=== PATIENT | female | born 1995 | race American Indian/Alaskan Native ===

== ENCOUNTER 2018-01-24 12:51 | Emergency (ER) | payer MEDICAID ==
[2018-01-24 13:05] VITALS: BP 108/69; PULSE 103; RESP 16; TEMP 98; O2SAT 100
--- NOTE | 2018-01-24 13:26 | ED PDOC ---
HPI: CCC, URI, Sore Throat Time Seen by Provider: 01/24/18 13:15 Chief Complaint (Nursing): ENT Problem Chief Complaint (Provider): ENT Problem History Per: Patient History/Exam Limitations: no limitations Onset/Duration Of Symptoms: Days (x2) Current Symptoms Are (Timing): Still Present Additional Complaint(s): 22 year old female presents to the emergency department complaining of a sore throat, onset two days. 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 Denies fever, chills, and cough. PMD: none provided Past Medical History Reviewed: Historical Data, Nursing Documentation, Vital Signs Vital Signs: Last Vital Signs Temp 98 F 01/24/18 13:05 Pulse 103 H 01/24/18 13:05 Resp 16 01/24/18 13:05 BP 108/69 01/24/18 13:05 Pulse Ox 100 01/24/18 13:28 - Medical History PMH: No Chronic Diseases - Surgical History Surgical History: No Surg Hx - Family History Family History: States: Unknown Family Hx - Social History Current smoker - smoking cessation education provided: No Alcohol: Occasional Drugs: Denies - Home Medications Home Medications: Ambulatory Orders Medication Instructions Recorded Ibuprofen [Motrin] 600 mg PO Q8 PRN #21 tab 01/24/18 Penicillin VK [Penicillin VK Tab] 1 tab PO QID #40 tab 01/24/18 - Allergies Allergies/Adverse Reactions: Allergies Allergy/AdvReac Type Severity Reaction Status Date / Time No Known Allergies Allergy Verified 01/24/18 13:10 Review of Systems ROS Statement: Except As Marked, All Systems Reviewed And Found Negative Constitutional: Negative for: Fever, Chills ENT: Positive for: Throat Pain Respiratory: Negative for: Cough Physical Exam - Reviewed Nursing Documentation Reviewed: Yes Vital Signs Reviewed: Yes - Physical Exam Appears: Positive for: Non-toxic, No Acute Distress Head Exam: Positive for: ATRAUMATIC, NORMOCEPHALIC Skin: Positive for: Normal Color, Warm, Dry Eye Exam: Positive for: EOMI, Normal appearance, PERRL ENT: Positive for: Pharyngeal Erythema (mild). Negative for: Tonsillar Exudate Neck: Positive for: Normal, Painless ROM, Supple Cardiovascular/Chest: Positive for: Regular Rate, Rhythm. Negative for: Murmur Respiratory: Positive for: Normal Breath Sounds. Negative for: Accessory Muscle Use, Respiratory Distress Back: Positive for: Normal Inspection Extremity: Positive for: Normal ROM Neurologic/Psych: Positive for: Alert, Oriented - ECG O2 Sat by Pulse Oximetry: 100 (RA) Pulse Ox Interpretation: Normal - Progress ED Course And Treament: rapid strep: pos Medical Decision Making Medical Decision Making: Time: 13:22 Initial Impression: sore throat Initial Plan: --Rapid strep test Scribe Attestation: Documented by Valery Small, acting as a scribe for Marion Dailey PA-C Provider Scribe Attestation: All medical record entries made by the Scribe were at my direction and personally dictated by me. I have reviewed the chart and agree that the record accurately reflects my personal performance of the history, physical exam, medical decision making, and the department course for this patient. I have also personally directed, reviewed, and agree with the discharge instructions and disposition. Disposition - Clinical Impression Clinical Impression: Streptococcal sore throat - Patient ED Disposition Is Patient to be Admitted: No - Disposition Referrals: [facility] [Outside] Disposition: Routine/Home Disposition Time: 13:48 Condition: FAIR Prescriptions: Ibuprofen [Motrin] 600 mg PO Q8 PRN #21 tab PRN Reason: Pain, Moderate (4-7) Penicillin VK [Penicillin VK Tab] 1 tab PO QID #40 tab Instructions: Strep Throat (DC) Forms: [facility] ED School/Work Excuse
== END 2018-01-24 14:14 | disposition home or self-care (01) ==
LOC: H.ER 12:51
DX: J02.0 Streptococcal pharyngitis (principal)

== ENCOUNTER 2018-05-04 10:46 | Emergency (ER) | payer SELFPAY ==
[2018-05-04 11:07] VITALS: TEMP 98.6; O2SAT 100; BMI 19.8
--- NOTE | 2018-05-04 11:39 | ED PDOC ---
HPI: Female Pain Time Seen by Provider: 05/04/18 11:13 Chief Complaint (Nursing): Female Genitourinary Chief Complaint (Provider): Female Genitourinary History Per: Patient History/Exam Limitations: no limitations Onset/Duration Of Symptoms: Days (x 1) Current Symptoms Are (Timing): Still Present Additional Complaint(s): 23 year old female () presents to the ED with vaginal spotting beginning yesterday. Patient is 11 weeks and has her 2 year old child present with her. Patient wanted to confirm things were normal in her . Denies pain, nausea, vomiting, diarrhea, dysuria and incontinence. PMD: [facility] Abnormal Vaginal Bleeding: Yes : 2 Para: 1 Miscarriage: 0 Past Medical History Reviewed: Historical Data, Nursing Documentation, Vital Signs Vital Signs: Last Vital Signs Temp 98.6 F 05/04/18 11:06 Pulse 100 H 05/04/18 11:06 Resp 18 05/04/18 11:06 BP 115/77 05/04/18 11:06 Pulse Ox 100 05/04/18 11:06 - Medical History PMH: No Chronic Diseases - Surgical History Surgical History: No Surg Hx - Family History Family History: States: Unknown Family Hx - Home Medications Home Medications: Ambulatory Orders Medication Instructions Recorded Ibuprofen [Motrin] 600 mg PO Q8 PRN #21 tab 01/24/18 Penicillin VK [Penicillin VK Tab] 1 tab PO QID #40 tab 01/24/18 Nitrofurantoin Macrocrystals 100 mg PO BID #14 cap 05/04/18 [Macrobid] - Allergies Allergies/Adverse Reactions: Allergies Allergy/AdvReac Type Severity Reaction Status Date / Time No Known Allergies Allergy Verified 05/04/18 11:28 Review of Systems ROS Statement: Except As Marked, All Systems Reviewed And Found Negative Gastrointestinal: Negative for: Nausea, Vomiting, Abdominal Pain, Diarrhea Genitourinary Female: Positive for: Vaginal Bleeding (mild spotting). Negative for: Dysuria, Frequency Physical Exam - Reviewed Nursing Documentation Reviewed: Yes Vital Signs Reviewed: Yes - Physical Exam Appears: Positive for: Non-toxic, No Acute Distress Head Exam: Positive for: ATRAUMATIC, NORMAL INSPECTION, NORMOCEPHALIC Skin: Positive for: Normal Color, Warm, DRY Eye Exam: Positive for: EOMI, Normal appearance, PERRL Neck: Positive for: Normal, Painless ROM, Supple Cardiovascular/Chest: Positive for: Regular Rate, Rhythm. Negative for: Murmur Respiratory: Positive for: Normal Breath Sounds. Negative for: Respiratory Distress Gastrointestinal/Abdominal: Positive for: Normal Exam, Soft. Negative for: Tenderness Extremity: Positive for: Normal ROM. Negative for: Deformity Neurologic/Psych: Positive for: Alert, Oriented (x 3). Negative for: Motor/ Sensory Deficits - Laboratory Results Result Diagrams: 05/04/18 12:00 05/04/18 12:00 - ECG O2 Sat by Pulse Oximetry: 100 (RA) Pulse Ox Interpretation: Normal Medical Decision Making Medical Decision Makin:22 Initial Plan: --Blood type --BMP --CBC --Urine cx --urine preg --Beta- HCG --UA --transvag US Scribe Attestation: Documented by Pennie Saldana, acting as a scribe for Stephani Smith MD Provider Scribe Attestation: All medical record entries made by the Scribe were at my direction and personally dictated by me. I have reviewed the chart and agree that the record accurately reflects my personal performance of the history, physical exam, medical decision making, and the department course for this patient. I have also personally directed, reviewed, and agree with the discharge instructions and disposition. 1.15p case d/w Dr. Caba. Advised followup for repeat HCG level. Will treat UTI in the meantime. Disposition - Clinical Impression Clinical Impression: UTI (urinary tract infection) during - Patient ED Disposition Is Patient to be Admitted: No Doctor Will See Patient In The: Office Counseled Patient/Family Regarding: Diagnosis, Need For Followup, Rx Given - Disposition Disposition: Routine/Home Disposition Time: 13:15 Condition: STABLE Additional Instructions: Repeat blood test for (HCG level) in 2-3 days Prescriptions: Nitrofurantoin Macrocrystals [Macrobid] 100 mg PO BID #14 cap Forms: [facility] (Fijian), [facility] ED School/Work Excuse - POA Present On Arrival: None
[2018-05-04 12:07] LABS: BASO % 0.3 % (0.0-2.0); EOS # 0.1 K/uL (0.0-0.7); EOS % 0.7 % (0.0-4.0); HEMOGLOBIN 12.9 g/dL (12.0-16.0); LYMPH # 1.1 K/uL (1.0-4.3); LYMPH % 8.5 % (20.0-40.0); MEAN CELL VOLUME 85.7 fl (81.0-99.0); MEAN CORPUSCULAR HEMOGLOBIN 28.8 pg (27.0-31.0); MEAN CORPUSCULAR HGB CONC 33.6 g/dL (33.0-37.0); MEAN PLATELET VOLUME 10.1 fl (7.2-11.7); MONO # 0.7 K/uL (0.0-0.8); MONO % 5.9 % (0.0-10.0); NEUT # 10.7 K/uL (1.8-7.0); NEUT % 84.6 % (50.0-75.0); PLATELET COUNT 217 K/uL (130-400); RBC 4.46 Mil/uL (3.80-5.20); RED CELL DISTRIBUTION WIDTH 14.3 % (11.5-14.5); WHITE BLOOD COUNT 12.7 K/uL (4.8-10.8)
[2018-05-04 12:17] LABS: SQUAMOUS EPITHIAL 43 /hpf (0-5); URINE AMORPHOUS SEDIMENT OCC /ul (<OCC); URINE BACTERIA MANY (<OCC); URINE BILIRUBIN NEGATIVE (NEGATIVE); URINE BLOOD SMALL (NEGATIVE); URINE CLARITY TURBID (Clear); URINE COLOR AMBER (YELLOW); URINE GLUCOSE (UA) NEG (Normal); URINE LEUKOCYTE ESTERASE TRACE Leu/uL (Negative); URINE PROTEIN 30 mg/dL (NEGATIVE)
[2018-05-04 12:25] LABS: CALCIUM 9.4 mg/dL (8.4-10.2); GFR NON-AFRICAN AMERICAN > 60
[2018-05-04 12:30] LABS: BLOOD UREA NITROGEN 11 mg/dl (7-17)
[2018-05-04 12:49] LABS: LYMPHOCYTE 6 % (20-50); MONOCYTE 6 % (0-10); NEUTROPHIL 88 % (42-75); PLATELET ESTIMATE NORMAL (NORMAL); TOTAL CELLS COUNTED 100
[2018-05-04 14:01] VITALS: BP 118/70; PULSE 88; RESP 16
--- NOTE | 2018-05-04 15:35 | US ---
Date of service: 05/04/2018 PROCEDURE: HISTORY: spotting since yesterday; states 11 weeks COMPARISON: TECHNIQUE: FINDINGS: The uterus measures 9.6 x 6.7 x 7.4 centimeters. There is an intrauterine gestational sac with size corresponding to 7 weeks 0 days gestational age. There is a yolk sac. A small subchorionic hemorrhage is noted. 3 millimeter possible early intrauterine gestation IMPRESSION: Seven week with possible 3 millimeter intrauterine gestation which does not correspond with gestational sac mean sac dimension. Findings could represent early or blighted ovum. Correlate with short-term interval follow-up and serial beta 18
== END 2018-05-04 14:01 | disposition home or self-care (01) ==
LOC: H.ER 10:46
DX: O23.41 Unspecified infection of urinary tract in pregnancy, first trimester (principal); Z3A.11 11 weeks gestation of pregnancy

== ENCOUNTER 2018-05-05 19:37 | Emergency (ER) | payer SELFPAY ==
[2018-05-05 19:37] VITALS: BMI 19.8
[2018-05-05 19:59] VITALS: O2SAT 99
--- NOTE | 2018-05-05 20:23 | ED PDOC ---
HPI: Female Pain Time Seen by Provider: 05/05/18 20:05 Chief Complaint (Nursing): Female Genitourinary Chief Complaint (Provider): Female Genitourinary History Per: Patient History/Exam Limitations: no limitations Onset/Duration Of Symptoms: Days (x1) Current Symptoms Are (Timing): Still Present Additional Complaint(s): 23 year old, 11 week female with no significant past medical history presents to the ED for vaginal bleeding. Yesterday, she started having vaginal spotting, presented to this ER and was diagnosed with UTI after bloodwork and US were performed. She was told to return to the ED in 2-3 days for repeat beta. Today she reports that the bleeding has gotten heavier, almost as if it was a period. Patient denies lightheadedness or pain. PMD: [facility] Abnormal Vaginal Bleeding: Yes Past Medical History Reviewed: Historical Data, Nursing Documentation, Vital Signs Vital Signs: Last Vital Signs Temp 98.9 F 05/05/18 19:55 Pulse 87 05/05/18 19:55 Resp 15 05/05/18 19:55 BP 108/71 05/05/18 19:55 Pulse Ox 99 05/05/18 19:55 - Medical History PMH: No Chronic Diseases - Surgical History Surgical History: No Surg Hx - Family History Family History: States: Unknown Family Hx - Home Medications Home Medications: Ambulatory Orders Medication Instructions Recorded Ibuprofen [Motrin] 600 mg PO Q8 PRN #21 tab 01/24/18 Penicillin VK [Penicillin VK Tab] 1 tab PO QID #40 tab 01/24/18 Nitrofurantoin Macrocrystals 100 mg PO BID #14 cap 05/04/18 [Macrobid] - Allergies Allergies/Adverse Reactions: Allergies Allergy/AdvReac Type Severity Reaction Status Date / Time No Known Allergies Allergy Verified 05/05/18 19:59 Review of Systems ROS Statement: Except As Marked, All Systems Reviewed And Found Negative Genitourinary Female: Positive for: Vaginal Bleeding Neurological: Positive for: Other (no lightheadedness ) Physical Exam - Reviewed Nursing Documentation Reviewed: Yes Vital Signs Reviewed: Yes - Physical Exam Appears: Positive for: No Acute Distress Gastrointestinal/Abdominal: Positive for: Soft. Negative for: Mass, Distended, Guarding, Rebound - ECG O2 Sat by Pulse Oximetry: 99 (RA) Pulse Ox Interpretation: Normal Medical Decision Making Medical Decision Making: Time: 2017 Initial Impression: threatened miscarriage --Advised patient on instructions for threatened mischarge and reasons to return. She will return in 2-3 days for repeat beta. --Reviewed previous charts, patient had a US that showed subchorionic hemorrhage and 7 week gestational sac. Time: 2020 --Patient medically cleared for discharge home. Scribe Attestation: Documented by Vicky Singh, acting as a scribe for Yadira Benson MD Provider Scribe Attestation: All medical record entries made by the Scribe were at my direction and personally dictated by me. I have reviewed the chart and agree that the record accurately reflects my personal performance of the history, physical exam, medical decision making, and the department course for this patient. I have also personally directed, reviewed, and agree with the discharge instructions and disposition. Disposition - Clinical Impression Clinical Impression: Threatened miscarriage - Disposition Disposition: Routine/Home Disposition Time: 20:21 Condition: STABLE Additional Instructions: RETURN TO ER ON SATURDAY FOR REPEAT BLOODWORK. RETURN IMMEDIATELY FOR --SOAKING MORE THAN ONE PAD AN HOUR OF BLOOD --FAINTING OR NEAR FAINTING --SEVERE INTRACTABLE PAIN (YOU CAN TAKE TYLENOL) Instructions: Threatened Miscarriage (DC) Forms: [facility] ED School/Work Excuse
[2018-05-05 20:37] VITALS: BP 110/73; PULSE 90; RESP 16; TEMP 98.8
== END 2018-05-05 20:36 | disposition home or self-care (01) ==
LOC: H.ER 19:37
DX: O20.0 Threatened abortion (principal); Z3A.11 11 weeks gestation of pregnancy

== ENCOUNTER 2018-05-06 22:21 | Emergency (ER) | payer SELFPAY ==
[2018-05-06 22:22] VITALS: BMI 19.8
[2018-05-06] MEDS ORDERED: Oxycodone/Acetaminophen 5/325 mg Tab PO STA (23:08)
--- NOTE | 2018-05-06 23:11 | ED PDOC ---
HPI: Female Pain Time Seen by Provider: 05/06/18 22:30 Chief Complaint (Nursing): Female Genitourinary Chief Complaint (Provider): pain and bleeding History Per: Patient Additional Complaint(s): 23 yo female, , presents to ED for evaluation of continue pain and bleeding in . Pt seen and evaluated here int he ED on Saturday for the same and was diagnosed with a threatened AB. Pt reports today pain became severe and bleeding increased which prompted ED visit. Past Medical History Reviewed: Nursing Documentation, Vital Signs Vital Signs: Last Vital Signs Temp 98.5 F 05/06/18 22:24 Pulse 110 H 05/06/18 22:24 Resp 18 05/06/18 22:24 BP 115/68 05/06/18 22:24 Pulse Ox 99 05/06/18 22:24 - Medical History PMH: No Chronic Diseases - Surgical History Surgical History: No Surg Hx - Family History Family History: States: Unknown Family Hx - Living Arrangements Living Arrangements: With Family - Social History Current smoker - smoking cessation education provided: No Alcohol: None Drugs: Denies - Home Medications Home Medications: Ambulatory Orders Medication Instructions Recorded Ibuprofen [Motrin] 600 mg PO Q8 PRN #21 tab 01/24/18 Penicillin VK [Penicillin VK Tab] 1 tab PO QID #40 tab 01/24/18 Nitrofurantoin Macrocrystals 100 mg PO BID #14 cap 05/04/18 [Macrobid] - Allergies Allergies/Adverse Reactions: Allergies Allergy/AdvReac Type Severity Reaction Status Date / Time No Known Allergies Allergy Verified 05/06/18 22:24 Physical Exam - Reviewed Nursing Documentation Reviewed: Yes Vital Signs Reviewed: Yes - Physical Exam Appears: Positive for: Non-toxic, No Acute Distress, Uncomfortable Head Exam: Positive for: ATRAUMATIC, NORMAL INSPECTION, NORMOCEPHALIC Skin: Positive for: Normal Color, Warm, DRY Eye Exam: Positive for: EOMI, Normal appearance, PERRL ENT: Positive for: Normal ENT Inspection Neck: Positive for: Normal, Painless ROM Cardiovascular/Chest: Positive for: Regular Rate, Rhythm Respiratory: Positive for: CNT, Normal Breath Sounds Gastrointestinal/Abdominal: Positive for: Soft, Tenderness (suprapubic tendernss ) Pelvic Exam: Positive for: External Exam Normal, Active Bleeding Back: Positive for: Normal Inspection Extremity: Positive for: Normal ROM Neurologic/Psych: Positive for: Alert, Oriented - ECG O2 Sat by Pulse Oximetry: 99 Medical Decision Making Medical Decision Making: Diagnotic review from 05/04: Beta: US IMPRESSION: Seven week with possible 3 millimeter intrauterine gestation which does not correspond with gestational sac mean sac dimension. Findings could represent early or blighted ovum. Correlate with short-term interval follow-up and serial beta 18 Case endorsed to ROBERT Herrera pending diagnostic review and re-eval Disposition - Clinical Impression Clinical Impression: Complete - Patient ED Disposition Is Patient to be Admitted: Transfer of Care - Disposition Disposition: Transfer of Care Disposition Time: 23:29 Condition: STABLE Forms: [employer] (Pakistani)
[2018-05-07 00:23] LABS: URINE BILIRUBIN NEGATIVE (NEGATIVE); URINE BLOOD MODERATE (NEGATIVE); URINE CLARITY CLOUDY (Clear); URINE COLOR YELLOW (YELLOW); URINE GLUCOSE (UA) NEG (Normal); URINE LEUKOCYTE ESTERASE NEG Leu/uL (Negative); URINE PROTEIN >=500 mg/dL (NEGATIVE); URINE UROBILINOGEN 0.2-1.0 mg/dL (0.2-1.0)
[2018-05-07 00:24] LABS: BASO % 0.3 % (0.0-2.0); EOS # 0.2 K/uL (0.0-0.7); EOS % 1.5 % (0.0-4.0); HEMOGLOBIN 12.6 g/dL (12.0-16.0); LYMPH # 1.7 K/uL (1.0-4.3); MEAN CORPUSCULAR HEMOGLOBIN 28.4 pg (27.0-31.0); MEAN CORPUSCULAR HGB CONC 32.6 g/dL (33.0-37.0); MEAN PLATELET VOLUME 10.6 fl (7.2-11.7); MONO # 0.8 K/uL (0.0-0.8); MONO % 5.9 % (0.0-10.0); NEUT # 10.4 K/uL (1.8-7.0); NEUT % 79.3 % (50.0-75.0); NRBC % 0.1 % (0.0-0.0); RBC 4.45 Mil/uL (3.80-5.20); RED CELL DISTRIBUTION WIDTH 14.5 % (11.5-14.5); WHITE BLOOD COUNT 13.1 K/uL (4.8-10.8)
--- NOTE | 2018-05-07 03:14 | ED PDOC ---
- Laboratory Results Result Diagrams: 05/06/18 23:32 - ECG O2 Sat by Pulse Oximetry: 99 - Progress ED Course And Treament: Case endorsed to promotion writer from [place] [facility] pending labs, u/s EXAM: US , Transvaginal EXAM DATE/TIME: 05/06/2018 11:08 PM CLINICAL HISTORY: 23 years old, female; Pain; complicated by abdominal or pelvic pain; Lower; First trimester; Gestational age or lmp: 02/14/2018; ; Additional info: Pain and bleeding TECHNIQUE: Real-time transvaginal obstetrical ultrasound of the maternal pelvis and a first trimester with image documentation. Transvaginal imaging was used for better evaluation of the fetus and adnexa. COMPARISON: No relevant prior studies available. FINDINGS: Gestation: No intrauterine is evident. Endometrial thickness is 3 cm demonstrating a heterogeneous echotexture. Placenta/amniotic fluid: No intrauterine is evident. Uterus/cervix: The uterus measures 10.7 x 7.5 x 5.1 cm. The cervix contains heterogeneous fluid products. No myometrial mass. Ovaries: The right ovary is unremarkable, measuring 3.2 x 2.5 x 1.6 cm. The left ovary is obscured by overlying bowel gas and cannot be visualized. Free fluid: No significant free fluid is noted within the pelvis. IMPRESSION: No intrauterine consistent with an interval miscarriage. Thickened endometrium up to 3 cm and fluid in the endocervical canal may reflect retained products of conception. On re-eval, patient resting comfortably Vitals stable Patient educated on findings, discharged with instructions to follow up with ob/ beef killer within 1 week Advised Tylenol PRN pain. Fluids Return precautions given Disposition - Clinical Impression Clinical Impression: Complete - POA Present On Arrival: None - Disposition [facility] Disposition: Routine/Home Disposition Time: 03:29 Condition: STABLE Instructions: Miscarriage
[2018-05-07 06:03] VITALS: BP 114/56; PULSE 84; RESP 16; TEMP 98.6; O2SAT 100
--- NOTE | 2018-05-07 12:29 | US ---
Date of service: 05/07/2018 HISTORY: Pain and bleeding. LMP 02/14/2018. Beta HCG results: 80785 units. Results from May 04, 2018 study. . COMPARISON: None available. TECHNIQUE: Transvaginal only. Real -time technique with 2D, duplex and color Doppler FINDINGS: UTERUS: Measures cm. Normal in size and appearance. No fibroid or other mass lesion seen. ENDOMETRIUM: Measures 29.9 mm in diameter. Thickened irregular endometrium. CERVIX: Fluid, debris identified within the cervical canal. RIGHT OVARY: Measures 1.6 x 3.5 x 3.2 cm. No solid mass. Normal flow. LEFT OVARY: A normal left adnexa is not visualized. Left adnexal region mass 6.2 cm. FREE FLUID: No significant free fluid noted. OTHER FINDINGS: None. IMPRESSION: Markedly thickened endometrium, fluid and debris identified within the endometrial canal. No viable intrauterine gestation identified. Stable findings left adnexa. Concordant results (preliminary interpretation) provided by [facility]. Procedure Completed: 01:14 Preliminary ([facility]) Report: Dictated and Authenticated: 02:40. Final Interpretation: 12:27. May 07, 2018.
== END 2018-05-07 03:55 | disposition home or self-care (01) ==
LOC: H.ER 22:21
DX: O03.9 Complete or unspecified spontaneous abortion without complication (principal); O46.90 Antepartum hemorrhage, unspecified, unspecified trimester